=== PATIENT | female | born 1955 | race Caucasian/White ===

== ENCOUNTER → 2017-07-29 | Outpatient (CLI) | payer OTHER | LOC: FIMAGING 10:46 | PROVIDERS: ATTEND Family Medicine Sports Medicine | DX: Z12.31 Encounter for screening mammogram for malignant neoplasm of breast (principal) ==

== ENCOUNTER → 2018-03-05 | Outpatient (CLI) | payer BC | LOC: FIMAGING 10:32 | PROVIDERS: ATTEND Family Medicine Sports Medicine | DX: Z13.820 Encounter for screening for osteoporosis (principal); K50.90 Crohn's disease, unspecified, without complications; N83.9 Noninflammatory disorder of ovary, fallopian tube and broad ligament, unspecified; M85.80 Other specified disorders of bone density and structure, unspecified site ==

== ENCOUNTER 2018-07-05 14:21 | Inpatient (IN) | payer BC ==
[2018-07-05] MEDS ORDERED: NS 500 ML IV ONE (14:41)
--- NOTE | 2018-07-05 14:50 | EDPHY ---
H & P Stated Complaint: Sent by PC for flu like symptoms, fever Time Seen by Provider: 07/05/18 14:22 HPI/ROS: CHIEF COMPLAINT: Persistent fever, cough and congestion HISTORY OF PRESENT ILLNESS: The patient presents the ED with 11 day history of worsening fever, cough or congestion. She endorses symptoms of atypical influenza infection at the onset of her symptoms with myalgias, high fever and fatigue. The patient did receive a flu shot this year. The patient has no history of lung disease. She only has hypothyroidism. She denies any vomiting or diarrhea. Patient reports moderate to severe dyspnea on exertion and a moderate to severe cough with associated chest pain. REVIEW OF SYSTEMS: A comprehensive 10 point review of systems is otherwise negative aside from elements mentioned in the history of present illness. Source: Patient Exam Limitations: No limitations - Personal History Current Tetanus/Diphtheria Vaccine: Unsure Current Tetanus Diphtheria and Acellular Pertussis (TDAP): Unsure - Medical/Surgical History Hx Asthma: No Hx Chronic Respiratory Disease: No Hx Diabetes: No Hx Cardiac Disease: No Hx Renal Disease: No Hx Cirrhosis: No Hx Alcoholism: No Hx HIV/AIDS: No Hx Splenectomy or Spleen Trauma: No - Social History Smoking Status: Former smoker - Physical Exam Exam: General Appearance: Alert, no distress Eyes: Pupils equal and round no pallor or injection ENT, Mouth: Mucous membranes moist Respiratory: Rhonchorous breath sounds bilateral lung bases Cardiovascular: Regular rate and rhythm Gastrointestinal: Soft nontender abdomen Neurological: 5/5 strength noted all 4 extremities Skin: Warm and dry, no rashes Musculoskeletal: Neck is supple nontender, specifically no meningeal symptoms Extremities: symmetrical, full range of motion Psychiatric: Patient is oriented X 3, there is no agitation Constitutional: Initial Vital Signs Temperature (C) 38.1 C 07/05/18 14:24 Heart Rate 96 07/05/18 14:24 Respiratory Rate 16 07/05/18 14:24 Blood Pressure 113/76 07/05/18 14:24 O2 Sat (%) 91 L 07/05/18 14:24 O2 Delivery Mode Room Air O2 (L/minute) 2 Allergies/Adverse Reactions: meperidine [From Demerol] Allergy (Verified 07/05/18 14:25) Home Medications: Medication Instructions Recorded Levothyroxine 07/05/18 Medical Decision Making - Diagnostics Imaging Results: Imaging Impressions Chest X-Ray 07/05/18 14:42 Impression: 1. Left lower lobe pneumonia without effusion 2. Underlying interstitial lung disease of unknown chronicity ED Course/Re-evaluation: Patient presents the ED with progressive respiratory symptoms. The patient was noted to be 86% on room air at the time of my evaluation. She was taken for a chest x-ray which demonstrated a lobar pneumonia. The patient had supplemental oxygen applied. She had blood cultures x2 obtained. The patient does not have septic physiology. I do feel she should be admitted to the hospital in a setting of her hypoxemia and pneumonia. Consultation was made with Dr. Gina Perez from the hospitalist service. The patient was treated with ceftriaxone and azithromycin intravenously. Differential Diagnosis: Differential diagnosis considered includes asthma, bronchitis, pneumonia, influenza - Data Points Laboratory Results: Laboratory Results 07/05/18 14:55 07/05/18 14:55 07/05/18 07/05/18 07/05/18 15:10 14:55 14:55 WBC 11.01 10^3/uL H 10^3/uL (3.80-9.50) RBC 3.52 10^6/uL L 10^6/uL (4.18-5.33) Hgb 8.4 g/dL L g/dL (12.6-16.3) Hct 27.9 % L % (38.0-47.0) MCV 79.3 fL L fL (81.5-99.8) MCH 23.9 pg L pg (27.9-34.1) MCHC 30.1 g/dL L g/dL (32.4-36.7) RDW 18.2 % H % (11.5-15.2) Plt Count 468 10^3/uL H 10^3/uL (150-400) MPV 9.5 fL fL (8.7-11.7) Neut % (Auto) 80.2 % H % (39.3-74.2) Lymph % (Auto) 9.0 % L % (15.0-45.0) [place] % (Auto) 7.5 % % (4.5-13.0) Eos % (Auto) 2.3 % % (0.6-7.6) Baso % (Auto) 0.5 % % (0.3-1.7) Nucleat RBC Rel Count 0.0 % % (0.0-0.2) Absolute Neuts (auto) 8.83 10^3/uL H 10^3/uL (1.70-6.50) Absolute Lymphs (auto) 0.99 10^3/uL L 10^3/uL (1.00-3.00) Absolute Monos (auto) 0.83 10^3/uL H 10^3/uL (0.30-0.80) Absolute Eos (auto) 0.25 10^3/uL 10^3/uL (0.03-0.40) Absolute Basos (auto) 0.05 10^3/uL 10^3/uL (0.02-0.10) Absolute Nucleated RBC 0.00 10^3/uL 10^3/uL (0-0.01) Immature Gran % 0.5 % % (0.0-1.1) Immature Gran # 0.06 10^3/uL 10^3/uL (0.00-0.10) Sodium 135 mEq/L mEq/L (135-145) Potassium 4.5 mEq/L mEq/L (3.5-5.2) Chloride 101 mEq/L mEq/L (97-110) Carbon Dioxide 23 mEq/l mEq/l (22-31) Anion Gap 11 mEq/L mEq/L (6-14) BUN 11 mg/dL mg/dL (7-23) Creatinine 0.6 mg/dL mg/dL (0.6-1.0) Estimated GFR > 60 Glucose 104 mg/dL H mg/dL (70-100) Calcium 9.1 mg/dL mg/dL (8.5-10.4) Nasal Influenza A PCR NEGATIVE FOR FLU A (NEGATIVE) Nasal Influenza B PCR NEGATIVE FOR FLU B (NEGATIVE) Medications Given: Discontinued Medications Sodium Chloride (Ns) 500 mls @ 1,000 mls/hr IV EDNOW ONE PRN Reason: Protocol Stop: 07/05/18 15:10 Last Admin: 07/05/18 14:59 Dose: 500 mls Ceftriaxone Sodium/Dextrose (Rocephin 1 Gm (Premix)) 50 mls @ 100 mls/hr IV EDNOW ONE PRN Reason: Protocol Stop: 07/05/18 16:07 Last Admin: 07/05/18 15:52 Dose: 50 mls Departure - Departure Disposition: [facility] Inpatient Acute Clinical Impression: Pneumonia Qualifiers: Pneumonia type: due to unspecified organism Laterality: left Lung location: lower lobe of lung Qualified Code(s): J18.1 - Lobar pneumonia, unspecified organism Condition: Fair Referrals: Harry Young MD [Primary Care Provider] - As per Instructions
[2018-07-05 15:10] LABS: PLATELET COUNT 468 10^3/uL (150-400)
[2018-07-05] MEDS ORDERED: AZITHROMYCIN IV 500 MG in D5W 250 ML IV ONE (15:38)
[2018-07-05] MEDS ORDERED: ONDANSETRON 4 MG/2 ML VIAL IVP PRN (16:09)
[2018-07-05] MEDS ORDERED: ONDANSETRON DISINTEGRATING 4 MG TAB PO PRN (16:09)
[2018-07-05] MEDS ORDERED: HYDROCODONE/APAP 5/325 TAB PO PRN (16:09)
[2018-07-05] MEDS ORDERED: PROMETHAZINE HCL 25 MG/ML INJ IVP PRN (16:09)
[2018-07-05] MEDS ORDERED: HYDROmorphONE/DILAUDID 1 MG/ML INJ IVP PRN (16:09)
[2018-07-05] MEDS ORDERED: AZITHROMYCIN IV 500 MG in NS 250 ML IV ONE (16:30)
--- NOTE | 2018-07-05 17:08 | PDGENHP ---
History and Physical - Chief Complaint sob, cough - History of Present Illness 62 yo F with no significant PMH presenting with fever, cough, sob. She notes that about 2 weeks ago she had gotten ill with what she believes was the flu-- she had fever to 103, body aches, malaise and cough. She had progressively been improving from that until late last week she began to have increasing cough and fever again, not as high but to around 101. She notes that for the last 2 days the sob and cough were severe, the cough was productive of green sputum. She has not been able to sleep due to the cough, but even before she got ill she was having issues sleeping as her has been sick and then had to have surgery and she has had to take care of him. She has not been eating much. She notes she feels better for the first time since coming to the ER and getting fluids and abx. She has never had similar issues in the past. History Information - Allergies/Home Medication List Allergies/Adverse Reactions: meperidine [From Demerol] Allergy (Verified 07/05/18 14:25) Home Medications: Levothyroxine [Synthroid 125 mcg (*)] 125 mcg PO DAILY06 07/05/18 [Last Taken ] I have personally reviewed and updated: family history, medical history, social history, surgical history - Past Medical History Additional medical history: hypothyroid - Surgical History Reports: no pertinent surgical hx - Family History Positive for: non-pertinent - Social History Smoking Status: Former smoker Alcohol Use: Occasionally Drug Use: None Additional social history: Review of Systems Review of Systems: ROS: 10pt was reviewed & negative except for what was stated in HPI & below Physical Exam Physical Exam: Temp Pulse Resp BP Pulse Ox 37.7 C 83 20 110/66 96 07/05/18 15:54 07/05/18 15:54 07/05/18 15:54 07/05/18 15:54 07/05/18 16:08 Constitutional: appears nourished, uncomfortable Eyes: PERRL, anicteric sclera Ears, Nose, Mouth, Throat: moist mucous membranes, hearing normal Cardiovascular: regular rate and rhythym, no murmur, rub, or gallop, No edema Respiratory: inspiratory crackles, bronchial breath sounds, respiratory distress Gastrointestinal: normoactive bowel sounds, soft, non-tender abdomen Genitourinary: no bladder tenderness Skin: warm, normal color Musculoskeletal: full muscle strength Neurologic: AAOx3 Psychiatric: interacting appropriately, not anxious, not encephalopathic Lab Data & Imaging Review 07/05/18 14:55 07/05/18 14:55 WBC 11.01 10^3/uL (3.80-9.50) H 07/05/18 14:55 RBC 3.52 10^6/uL (4.18-5.33) L 07/05/18 14:55 Hgb 8.4 g/dL (12.6-16.3) L 07/05/18 14:55 Hct 27.9 % (38.0-47.0) L 07/05/18 14:55 MCV 79.3 fL (81.5-99.8) L 07/05/18 14:55 MCH 23.9 pg (27.9-34.1) L 07/05/18 14:55 MCHC 30.1 g/dL (32.4-36.7) L 07/05/18 14:55 RDW 18.2 % (11.5-15.2) H 07/05/18 14:55 Plt Count 468 10^3/uL (150-400) H 07/05/18 14:55 MPV 9.5 fL (8.7-11.7) 07/05/18 14:55 Neut % (Auto) 80.2 % (39.3-74.2) H 07/05/18 14:55 Lymph % (Auto) 9.0 % (15.0-45.0) L 07/05/18 14:55 [place] % (Auto) 7.5 % (4.5-13.0) 07/05/18 14:55 Eos % (Auto) 2.3 % (0.6-7.6) 07/05/18 14:55 Baso % (Auto) 0.5 % (0.3-1.7) 07/05/18 14:55 Nucleat RBC Rel Count 0.0 % (0.0-0.2) 07/05/18 14:55 Absolute Neuts (auto) 8.83 10^3/uL (1.70-6.50) H 07/05/18 14:55 Absolute Lymphs (auto) 0.99 10^3/uL (1.00-3.00) L 07/05/18 14:55 Absolute Monos (auto) 0.83 10^3/uL (0.30-0.80) H 07/05/18 14:55 Absolute Eos (auto) 0.25 10^3/uL (0.03-0.40) 07/05/18 14:55 Absolute Basos (auto) 0.05 10^3/uL (0.02-0.10) 07/05/18 14:55 Absolute Nucleated RBC 0.00 10^3/uL (0-0.01) 07/05/18 14:55 Immature Gran % 0.5 % (0.0-1.1) 07/05/18 14:55 Immature Gran # 0.06 10^3/uL (0.00-0.10) 07/05/18 14:55 Sodium 135 mEq/L (135-145) 07/05/18 14:55 Potassium 4.5 mEq/L (3.5-5.2) 07/05/18 14:55 Chloride 101 mEq/L (97-110) 07/05/18 14:55 Carbon Dioxide 23 mEq/l (22-31) 07/05/18 14:55 Anion Gap 11 mEq/L (6-14) 07/05/18 14:55 BUN 11 mg/dL (7-23) 07/05/18 14:55 Creatinine 0.6 mg/dL (0.6-1.0) 07/05/18 14:55 Estimated GFR > 60 07/05/18 14:55 Glucose 104 mg/dL (70-100) H 07/05/18 14:55 Calcium 9.1 mg/dL (8.5-10.4) 07/05/18 14:55 Nasal Influenza A PCR NEGATIVE FOR FLU A (NEGATIVE) 07/05/18 15:10 Nasal Influenza B PCR NEGATIVE FOR FLU B (NEGATIVE) 07/05/18 15:10 Visualized and Interpreted Chest x-ray results: Yes Chest X-Ray results: infiltrate (LLL) Assessment & Plan Assessment: Pneumonia (Acute) 62 yo F with minimal PMH presenting with LLL Pna # LLL pneumonia: occurring in the post viral illness setting, started on ctx/ azithro, blood cultures pending. # acute hypoxic respiratory failure: with o2 sats in the low 90s with associated sob, increased wob in setting of above. Improved on 2L of o2, treatment as above, ambulation, IS # microcytic anemia: with w/u underway from her PCP and appears c/w iron deficiency, though b12 was checked and that was also slightly low. Will check occult blood and trend overnight, does appear to have been trending down recently. If she has not had a colonoscopy recently she warrants one now # leukocytosis: in the setting of pna and due to same, otherwise not meeting SIRS criteria # IP status given multiple high risk issues Patient new to my care. Old records reviewed and summarized as above. Care plan reviewed with ER doctor as above.
[2018-07-05] MEDS: ACETAMINOPHEN 325 MG TAB PO PRN (18:24)
[2018-07-05] MEDS: ALBUTEROL 3 ML DEYVIAL IH PRN (20:39)
[2018-07-05] MEDS: guaiFENesin/CODEINE PHOS 10 ML UDCUP PO PRN (21:41)
[2018-07-05] MEDS: HYDROCODONE/APAP 5/325 TAB PO PRN (21:41)
[2018-07-05] MEDS: oxyCODONE IR 5 MG TAB PO PRN (22:48)
[2018-07-06] MEDS: guaiFENesin/CODEINE PHOS 10 ML UDCUP PO PRN ×3 (04:32→18:48)
[2018-07-06] MEDS: oxyCODONE IR 5 MG TAB PO PRN ×3 (04:33→16:04)
[2018-07-06 05:10] LABS: PLATELET COUNT 459 10^3/uL (150-400)
[2018-07-06] MEDS: ALBUTEROL 3 ML DEYVIAL IH PRN (05:18)
[2018-07-06] MEDS: ACETAMINOPHEN 325 MG TAB PO PRN ×2 (07:33→16:04)
--- NOTE | 2018-07-06 09:32 | PDMN ---
Medical Necessity Medical necessity: Pt meets inpt criteria per MD order and MCG [id number], Pneumonia , admission indicated for: hypoxemia, 86% on RA and SOB, pt without baseline need for supplemental O2 requiring 2-4L O2 since admission to keep sats>90%. 62 y/o admitted w/LLL PNA and AHRF, occurring in post viral illness setting, microcytic anemia, H/H 7.8/27.2. IV ABX's, bl cultures pending, follow anemia, anticipate>2MN for ongoing eval/management of above.
[2018-07-06] MEDS: AZITHROMYCIN IV 500 MG in NS 250 ML IV SCH (11:05)
--- NOTE | 2018-07-06 12:46 | ASMTCMCOM ---
CM Note CM Note Notes: Chart reviewed for discharge and Pt discussed in rounds. Pt admitted with fever, cough, SOB and pneumonia. Pt has a history of hypothyroid. Pt live with her and will likely discharge home tomorrow when medically cleared.. CM Available for needs. PLAN: Home independently. Date Signed: 07/06/2018 12:45 PM Electronically Signed By:Cindy Garcia
[2018-07-06] MEDS: LEVOTHYROXINE 125 MCG TAB PO SCH (13:07)
--- NOTE | 2018-07-06 19:21 | HOSPPROG ---
Hospitalist Progress Note Assessment/Plan: * Pneumonia -IV ceftriaxone, IV azithro -still febrile * Acute respiratory failure -initially requiring 4L - now down to 2L * Iron deficiency anemia -clarify colonoscopy status Subjective: Still with severe pleuritic CP Objective: Vital Signs Temp Pulse Resp BP Pulse Ox 37.3 C 76 16 123/66 H 94 07/06/18 17:57 07/06/18 17:41 07/06/18 17:41 07/06/18 15:49 07/06/18 17:41 Laboratory Results 07/06/18 04:40 07/05/18 07/06/18 07/07/18 05:59 05:59 05:59 Intake Total 1000 1250 Balance 1000 1250 CXR viewed, my personal interpretation is - minimal effusion, + infiltrate ICD10 Worksheet Patient Problems: Problems Problem Status Onset Pneumonia Acute
[2018-07-06] MEDS: HYDROCODONE/APAP 5/325 TAB PO PRN (20:29)
[2018-07-06] MEDS: FERROUS SULFATE 325 MG TAB PO SCH (20:29)
[2018-07-07] MEDS: guaiFENesin/CODEINE PHOS 10 ML UDCUP PO PRN ×3 (01:36→21:46)
[2018-07-07] MEDS: HYDROCODONE/APAP 5/325 TAB PO PRN ×2 (01:36→23:47)
[2018-07-07 05:59] LABS: PLATELET COUNT 388 10^3/uL (150-400)
[2018-07-07] MEDS: LEVOTHYROXINE 125 MCG TAB PO SCH (06:22)
[2018-07-07] MEDS: ACETAMINOPHEN 325 MG TAB PO PRN (08:21)
[2018-07-07] MEDS: FERROUS SULFATE 325 MG TAB PO SCH ×2 (08:26→21:46)
[2018-07-07] MEDS: AZITHROMYCIN IV 500 MG in NS 250 ML IV SCH (09:47)
[2018-07-07] MEDS: oxyCODONE IR 5 MG TAB PO PRN (10:38)
[2018-07-07] MEDS ORDERED: AZITHROMYCIN 250 MG TAB PO ONE (12:45)
[2018-07-07] MEDS ORDERED: KETOROLAC 15 MG/1 ML SDV IVP PRN (16:34)
--- NOTE | 2018-07-07 16:36 | HOSPPROG ---
Hospitalist Progress Note Assessment/Plan: * Pneumonia -IV ceftriaxone, IV azithro -still febrile -recheck CXR reassuring * Acute respiratory failure -initially requiring 4L - now down to 2L * Iron deficiency anemia -clarify colonoscopy status -PO ferrous sulfate * IV infiltration -severe pain -azithro not a desiccant - shouldn't cause tissue damage -IV Dilaudid for pain Subjective: A little better, less pleuritic chest pain Objective: Vital Signs Temp Pulse Resp BP Pulse Ox 36.9 C 77 16 105/55 L 94 07/07/18 15:45 07/07/18 15:45 07/07/18 15:45 07/07/18 15:45 07/07/18 15:45 Laboratory Results 07/07/18 04:56 07/06/18 07/07/18 07/08/18 05:59 05:59 05:59 Intake Total 1000 2500 Balance 1000 2500 CXR viewed, my personal interpretation is - no effusion, infiltrate not worse - Physical Exam Constitutional: no apparent distress, appears nourished, not in pain, uncomfortable, other (crying in severe pain from IV infiltration) Cardiovascular: regular rate and rhythym, no murmur, rub, or gallop Respiratory: no respiratory distress, no rales or rhonchi, clear to auscultation , rhonchi (occasional) Gastrointestinal: normoactive bowel sounds, soft, non-tender abdomen, no palpable masses Skin: no rashes or abrasions, no fluctuance, no induration Neurologic: AAOx3, sensation intact bilaterally Psychiatric: interacting appropriately, not anxious, not encephalopathic, thought process linear ICD10 Worksheet Patient Problems: Problems Problem Status Onset Pneumonia Acute
[2018-07-07] MEDS ORDERED: CEPACOL LOZENGE PO PRN (18:06)
[2018-07-07] MEDS: ENOXAPARIN 40 MG/0.4 ML SYR SC SCH (18:57)
[2018-07-07] MEDS: ALBUTEROL 3 ML DEYVIAL IH PRN (23:25)
[2018-07-08 05:20] LABS: PLATELET COUNT 425 10^3/uL (150-400)
[2018-07-08] MEDS: LEVOTHYROXINE 125 MCG TAB PO SCH (05:21)
[2018-07-08] MEDS: guaiFENesin/CODEINE PHOS 10 ML UDCUP PO PRN (05:21)
[2018-07-08] MEDS: FERROUS SULFATE 325 MG TAB PO SCH (09:54)
[2018-07-08] MEDS: ENOXAPARIN 40 MG/0.4 ML SYR SC SCH (09:55)
[2018-07-08] MEDS ORDERED: SODIUM FERRIC GLUCONAT/SUCROSE 125 MG in NS 100 ML IV ONE (10:45)
[2018-07-08 11:09] VITALS: BP 105/54
--- NOTE | 2018-07-08 11:19 | PDHOMEO2F ---
Home Oxygen Face to Face Home Orders: I certify that a physician or a nurse practitioner or physician's speech assistant has had a [id number] encounter with this patient on the date of this order due to the diagnosis listed, which relates to the primary reason the patient requires home oxygen. Alternative treatments have been tried, or considered, and deemed ineffective. It is anticipated that supplemental oxygen will result in improvement with treatment. Home oxygen qualifying diagnosis: pneumonia, anemia SpO2 on room air (%): 85 Frequency of home oxygen needed: continuous Home oxygen liters per minute: 2 Home oxygen delivery device: nasal cannula Concentrator: Yes E-tanks for mobility and back up: Yes If ordering portable O2, is the patient mobile in the home?: Yes I certify that, based on these findings, the home oxygen is medically necessary for this patient for the following length of time. Length of time home oxygen needed: 3 months
--- NOTE | 2018-07-08 11:26 | ASMTLACE ---
[facility] Length of stay for Answers: 3 days current admission Acuity / Level of Answers: Yes Care: Did the patient have an inpatient admission? Comorbidities - select Answers: Other Notes: Hypothyroid all that apply # of Emergency department Answers: 1-2 visits in the last 6 months Score: 8 Date Signed: 07/08/2018 11:25 AM Electronically Signed By:Chelsea Robb RN
--- NOTE | 2018-07-08 19:42 | GDS ---
[f rep st] DISCHARGE SUMMARY DISCHARGE DIAGNOSES: 1. Community-acquired pneumonia. 2. Acute respiratory failure. 3. Iron-deficiency anemia. 4. Crohn disease. HISTORY: Lillie is a 62-year-old female who presented with pneumonia. She had persistent high feve r and a lot of pleuritic chest pain with slow improvement. Eventually, she improved to the point of being able to transition to oral antibiotics. She has completed her azithromycin during the hospital ization, so we will discharge on Omnicef. Oxygen was initially at 4 L with respiratory distress, now titrating down to 2 L. she did refuse home oxygen despite being only 84% on room air at the time of discharge. During this hospitalization, she was found have an iron-deficiency anemia. With hydration, her H and H fell further. She was given a dose of IV iron prior to discharge. She will discharge on oral zak huan sulfate. She has a known history of Crohn disease, but has been off treatment for quite some ti me. She has had some increased GI distress recently, and was currently pursuing repeat outpatient GI consultation. She had a colonoscopy about 1 year ago, and has followed very closely with GI in the past. She will reestablish outpatient appointment immediately upon hospital discharge. DISCHARGE MEDICATIONS: Please see computerized record for full detailed list. New medications: 1. Omnicef 300 mg p.o. twice daily x7 days. 2. Ferrous sulfate 325 mg p.o. twice daily. 3. Robitussin AC p.r.n. cough. ADDITIONAL DISCHARGE INSTRUCTIONS: Follow up with Gastroenterology for further evaluation of iron de ficiency anemia. Greater 30 minutes' time spent arranging this discharge. Patient seen examined by me on the date of discharge. /[id number]/MODL
== END 2018-07-08 13:52 | disposition home or self-care (01) | DRG 193 ==
LOC: F1N 18:04
PROVIDERS: ADMIT Internal Medicine; ATTEND Internal Medicine
DX: J18.8 Other pneumonia, unspecified organism (principal); J96.00 Acute respiratory failure, unspecified whether with hypoxia or hypercapnia; K50.90 Crohn's disease, unspecified, without complications; E86.9 Volume depletion, unspecified; D50.9 Iron deficiency anemia, unspecified; E03.9 Hypothyroidism, unspecified; Z87.891 Personal history of nicotine dependence
CPT/HCPCS: 96365; 97116-GP; 97161-GP; 97165-GO; J0456; J0696; J1170; J1650; J2916; J7613

== ENCOUNTER 2018-07-09 08:18 | Emergency (ER) | payer BC ==
[2018-07-09] MEDS ORDERED: IBUPROFEN 600 MG TAB PO ONE (09:02)
--- NOTE | 2018-07-09 09:10 | EDPHY ---
H & P Stated Complaint: LUE swelling/IV Time Seen by Provider: 07/09/18 08:45 HPI/ROS: CHIEF COMPLAINT: Left upper extremity swelling and pain HISTORY OF PRESENT ILLNESS: 62-year-old female presents with left upper extremity swelling and pain. She was admitted on 07/05 for pneumonia and hypoxia. She was discharged home yesterday on Omnicef and cough medication. Onset of left upper extremity swelling and pain at the previous IV site yesterday afternoon. The pain is moderate and increases with palpation. No associated fever. She is on home oxygen since discharge. REVIEW OF SYSTEMS: complete 10 point ROS reviewed and is negative except for the noted elements in the HPI Source: Patient - Personal History Current Tetanus Diphtheria and Acellular Pertussis (TDAP): Unsure - Medical/Surgical History Hx Asthma: No Hx Chronic Respiratory Disease: No Hx Diabetes: No Hx Cardiac Disease: No Hx Renal Disease: No Hx Cirrhosis: No Hx Alcoholism: No Hx HIV/AIDS: No Hx Splenectomy or Spleen Trauma: No Other PMH: 2002 brain tumor - Social History Smoking Status: Former smoker Alcohol Use: Sober - Physical Exam Exam: General Appearance: Alert, pleasant, nontoxic appearing Eyes: Pupils equal and round, no conjunctival pallor ENT, Mouth: Mucous membranes moist Neck: Normal inspection Respiratory: Left-sided rales/rhonchi Cardiovascular: Regular rate and rhythm Gastrointestinal: Abdomen is soft and nontender Neurological: A&O, nonfocal, normal gait Skin: Warm and dry Extremities: Left upper extremity-erythema, warmth and tenderness over the antecubital area, patchy erythema extends to the upper forearm, no forearm swelling or tenderness Psychiatric: Mood and affect normal Constitutional: Initial Vital Signs Temperature (C) 36.9 C 07/09/18 08:23 Heart Rate 79 07/09/18 08:23 Respiratory Rate 18 07/09/18 08:23 Blood Pressure 119/68 07/09/18 08:23 O2 Sat (%) 90 L 07/09/18 08:23 O2 Delivery Mode Room Air O2 (L/minute) 2 Allergies/Adverse Reactions: meperidine [From Demerol] Allergy (Verified 07/09/18 08:25) Home Medications: Medication Instructions Recorded Levothyroxine [Synthroid 125 mcg 125 mcg PO DAILY06 07/05/18 (*)] Cefdinir [Omnicef (*)] 300 mg PO BID #14 cap 07/08/18 Codeine Phosphate/Guaifenesin 10 ml PO Q6 PRN #120 ml 07/08/18 [Codeine-Guaifen 10-100 mg/5 ml] Ferrous Sulfate [Ferrous Sulf 325 325 mg PO BID #60 tab 07/08/18 MG (*)] Albuterol [Proventil Inhaler HFA 2 puffs IH QID PRN #1 mdi 07/09/18 (*)] Doxycycline Hyclate 100 mg PO BID #20 tablet 07/09/18 Hydrocodone/APAP 5/325 [[place] 1 tab PO HS PRN #15 tab 07/09/18 5/325] Medical Decision Making ED Course/Re-evaluation: This patient presents with left upper extremity erythema and tenderness after recent IV placement. Ultrasound reveals superficial thrombophlebitis. She has a significant area of erythema surrounding this thrombosed vein. I feel that she would benefit from antibiotics for cellulitis. After some discussion with the patient, including that she is feeling only somewhat better after recent diagnosis of pneumonia, I will switch her antibiotic to doxycycline. I reviewed her old medical record and respiratory PCR and blood cultures were negative. Doxycycline should adequately treat pneumonia as well as cellulitis. She was also given a prescription for Vicodin for cough. Vicodin alleviated her cough during the recent admission, but is now having trouble sleeping because of frequent coughing episodes. Warning signs discussed with the patient. - Data Points Medications Given: Discontinued Medications Albuterol/Ipratropium (Duoneb) 3 ml IH EDNOW ONE Stop: 07/09/18 10:30 Last Admin: 07/09/18 10:36 Dose: 3 ml Ibuprofen (Motrin) 600 mg PO EDNOW ONE Stop: 07/09/18 09:03 Last Admin: 07/09/18 09:05 Dose: 600 mg Departure - Departure Disposition: Home, Routine, Self-Care Clinical Impression: Superficial thrombophlebitis of left upper extremity Condition: Fair Instructions: Superficial Thrombophlebitis (ED) Additional Instructions: I have prescribed doxycycline, as this medication treat pneumonia and cellulitis. Apply a warm pack to the left arm every 3-4 hours. Ibuprofen 600 mg 3 times daily while the pain persists. Iron interferes with the action of Doxycycline, so take these medications 2 or more hours apart. Stop taking cefdinir. Referrals: Harry Young MD [Primary Care Provider] - As per Instructions Prescriptions: Albuterol [Proventil Inhaler HFA (*)] 2 puffs IH QID PRN #1 mdi PRN Reason: Short Of Breath/Dyspnea Doxycycline Hyclate 100 mg PO BID #20 tablet Hydrocodone/APAP 5/325 [[place] 5/325] 1 tab PO HS PRN #15 tab PRN Reason: cough
[2018-07-09 10:18] VITALS: BP 97/59
[2018-07-09] MEDS ORDERED: IPRATROPIUM/ALBUTEROL 3 ML DEYVIAL IH ONE (10:29)
== END 2018-07-09 11:33 | disposition home or self-care (01) ==
DX: I80.8 Phlebitis and thrombophlebitis of other sites (principal); Z87.891 Personal history of nicotine dependence

== ENCOUNTER → 2018-08-03 | Outpatient (CLI) | payer BC | LOC: FIMAGING 09:26 ==